=== PATIENT | male | born 1965 | race Caucasian/White ===

== ENCOUNTER 2022-10-15 05:34 | Day surgery (SDC) | payer OTHER ==
[2022-10-09 12:07] LABS: CREATININE 5.1 mg/dL (0.5-1.5); POTASSIUM 4.7 mmol/L (3.5-5.1)
[2022-10-09 12:10] LABS: INR 0.94 (0.85-1.15); PROTHROMBIN TIME 10.3 SEC (9.6-11.6)
[2022-10-09 12:11] LABS: BASOPHILS % (AUTO) 0.7 % (0.0-5.0); EOSINOPHILS % (AUTO) 3.2 % (0.0-8.0); HEMATOCRIT 38.6 % (42-54); LYMPHOCYTES % (AUTO) 21.4 % (21.0-51.0); MEAN CORPUSCULAR HEMOGLOBIN 30.7 pg (27.0-33.0); MEAN CORPUSCULAR HGB CONC 32.4 g/dL (32.0-36.0); MEAN CORPUSCULAR VOLUME 94.8 fL (79-99); NEUTROPHILS % (AUTO) 64.5 % (40.0-77.0); PLATELET COUNT (AUTO) 142 K/uL (130-400); RED BLOOD CELL COUNT(AUTO) 4.07 MIL/uL (4.50-6.20); RED CELL DISTRIBUTION WIDTH 14.7 % (11.0-15.5); WHITE BLOOD COUNT (AUTO) 5.9 K/uL (4.8-10.8)
[2022-10-09 13:15] LABS: B-TYPE NATRIURETIC PEPTIDE 77 pg/mL (0-100)
[2022-10-14 08:46] VITALS: BP 173/82
[~2022-10-15] VITALS: Ht 177.8 cm; Wt 92.0 kg
[2022-10-15] VITALS (14 sets, daily range): BP systolic 122–167; BP diastolic 61–81
[~2022-10-15 05:34] MED LIST: AMLO-258 PO; FOLI1TAB85 PO; FURO20TA4 PO; GABA300C PO; HYDR-3422 PO; ISOS30TA92 PO; LINA5TAB PO; METH-811 PO; SERT-439 PO; SEVE800T7 PO; SIMV-43 PO; SODI650T PO
[2022-10-15] MEDS ORDERED: 0.9% NACL 500ML IV.SOLN 500 ML IV ONE (06:25)
[2022-10-15] MEDS ORDERED: IOHEXOL-350 50ML VIAL IV ONE (07:14)
[2022-10-15] MEDS ORDERED: HEPARIN 1,000 UNIT VIAL ONE (07:14)
[2022-10-15] MEDS ORDERED: IOHEXOL 350 MG/ML 100ML INFUS..BTL IV ONE (07:14)
[2022-10-15] MEDS ORDERED: LIDOCAINE HCL 400MG/20ML VIAL ONE (07:14)
[2022-10-15] MEDS ORDERED: MIDAZOLAM HCL 1 MG/ML 2ML VIAL ONE (07:26)
[2022-10-15] MEDS ORDERED: FENTANYL CITRATE PF 50 MCG/1 ML 2ML VIAL ONE (07:26)
[2022-10-15] MEDS ORDERED: LABETALOL 20MG VIAL IV ONE (07:47)
[2022-10-15] MEDS ORDERED: HYDRALAZINE 20MG/ML VIAL ONE ×2 (07:58→08:03)
== END 2022-10-15 16:00 | disposition home or self-care (01) ==
LOC: DAH 05:34
PROVIDERS: ATTEND Internal Medicine Cardiovascular Disease
DX: I25.119 Atherosclerotic heart disease of native coronary artery with unspecified angina pectoris (principal); E11.22 Type 2 diabetes mellitus with diabetic chronic kidney disease; N18.6 End stage renal disease; I50.9 Heart failure, unspecified; Z87.891 Personal history of nicotine dependence; Z79.899 Other long term (current) drug therapy; Z82.49 Family history of ischemic heart disease and other diseases of the circulatory system; Z88.8 Allergy status to other drugs, medicaments and biological substances; Z79.01 Long term (current) use of anticoagulants; Z98.890 Other specified postprocedural states; Z90.49 Acquired absence of other specified parts of digestive tract; Z99.2 Dependence on renal dialysis
CPT/HCPCS: 80048; 83880; 85025; 85610; 85730; 36415; 71045; 93005; 93458; 82948; C1894; J7040; J3490 ×2; J0360 ×2; J1644 ×2; Q9967 ×2; Q9965; J2250; J3010